=== PATIENT | female | born 1970 | race Caucasian/White ===

== ENCOUNTER 2017-12-27 04:05 | Observation (INO) | payer OTHER ==
[2017-12-27] MEDS ORDERED: ONDANSETRON 4 MG/2 ML VIAL IVP STA (04:35)
[2017-12-27] MEDS ORDERED: MORPHINE SULFATE 2 MG/ML SYRINGE IVP STA ×2 (04:42→06:53)
[2017-12-27] MEDS ORDERED: SODIUM CHLORIDE 0.9% 500 ML 500 ML IV STA (04:45)
[2017-12-27 05:07] LABS: Basophils % (A) 0 %; Eosinophils # (A) 0.2 k/uL (0-0.7); Eosinophils % (A) 2 %; HCT 42.1 % (34.0-46.0); HGB 13.3 gm/dL (11.4-16.0); Lymphocytes # (A) 1.7 k/uL (1.0-4.8); Lymphocytes % (A) 15 %; MCH 26.7 pg (25.0-35.0); MCHC 31.5 g/dL (31.0-37.0); MCV 84.7 fL (80.0-100.0); Mean Platelet Volume 7.1; Monocytes # (A) 0.5 k/uL (0-1.0); Monocytes % (A) 4 %; Neutrophils # (A) 8.8 k/uL (1.3-7.7); Neutrophils % (A) 78 %; Platelet Count 424 k/uL (150-450); RBC 4.97 m/uL (3.80-5.40); RDW 14.1 % (11.5-15.5); WBC 11.4 k/uL (3.8-10.6)
[2017-12-27 05:21] LABS: ALT 261 U/L (9-52); AST 311 U/L (14-36); Albumin 4.1 g/dL (3.5-5.0); Alkaline Phosphatase 171 U/L (38-126); Anion Gap 11 mmol/L; Blood Urea Nitrogen 12 mg/dL (7-17); Calcium 9.2 mg/dL (8.4-10.2); Carbon Dioxide 27 mmol/L (22-30); Chloride 101 mmol/L (98-107); Glucose 98 mg/dL (74-99); Potassium 3.7 mmol/L (3.5-5.1); Sodium 139 mmol/L (137-145); Total Bilirubin 0.8 mg/dL (0.2-1.3); Total Protein 7.4 g/dL (6.3-8.2)
[2017-12-27 05:32] LABS: Creatine Kinase 93 U/L (30-135)
[2017-12-27 05:43] LABS: Amylase 561 U/L (30-110)
[2017-12-27 05:46] LABS: Creatine Kinase MB 0.7 ng/mL (0.0-2.4); Troponin I <0.012 ng/mL (0.000-0.034)
--- NOTE | 2017-12-27 05:46 | XR ---
EXAM: XR Abdomen, 1 View. CLINICAL HISTORY: Reason: abdominal pain TECHNIQUE: Frontal supine view of the abdomen/pelvis. COMPARISON: No relevant prior studies available. FINDINGS: Gastrointestinal tract: Bowel gas pattern is nonobstructive. No gross pneumoperitoneum. Bones: Unremarkable. No acute fracture. Intrauterine contraceptive device in place. IMPRESSION: No findings to account for the patient's symptoms.
--- NOTE | 2017-12-27 05:50 | ED ---
Abdominal Pain HPI - General Chief Complaint: Abdominal Pain Stated Complaint: Abd pain Time Seen by Provider: 12/27/17 05:00 Source: patient Mode of arrival: ambulatory Limitations: no limitations - History of Present Illness MD Complaint: abdominal pain Onset/Timin -: hour(s) Location: periumbilical Radiation: none Migration to: no migration Severity: moderate Quality: dull Consistency: constant Improves With: nothing Worsens With: nothing Associated Symptoms: nausea - Related Data Allergies Allergy/AdvReac Type Severity Reaction Status Date / Time No Known Allergies Allergy Verified 12/27/17 04:14 Review of Systems ROS Statement: Those systems with pertinent positive or pertinent negative responses have been documented in the HPI. ROS Other: All systems not noted in ROS Statement are negative. Constitutional: Denies: fever, chills Respiratory: Denies: cough, dyspnea Cardiovascular: Denies: chest pain, palpitations Gastrointestinal: Reports: abdominal pain, nausea. Denies: vomiting, diarrhea, constipation, melena, hematochezia Genitourinary: Denies: urgency, dysuria, hematuria Musculoskeletal: Denies: back pain Skin: Denies: rash Neurological: Denies: headache, weakness Past Medical History Past Medical History: GERD/Reflux, Hyperlipidemia, Hypertension Additional Past Medical History / Comment(s): hernia History of Any Multi-Drug Resistant Organisms: None Reported Past Surgical History: No Surgical Hx Reported Past Psychological History: Anxiety Smoking Status: Former smoker Past Alcohol Use History: Occasional Past Drug Use History: None Reported General Exam Limitations: no limitations General appearance: alert, in no apparent distress, obese Head exam: Present: atraumatic, normocephalic Eye exam: Present: normal appearance. Absent: scleral icterus, conjunctival injection ENT exam: Present: normal oropharynx Respiratory exam: Present: normal lung sounds bilaterally. Absent: respiratory distress, wheezes, rales, rhonchi, stridor Cardiovascular Exam: Present: regular rate, normal rhythm, normal heart sounds. Absent: systolic murmur, diastolic murmur, rubs, gallop GI/Abdominal exam: Present: soft, tenderness. Absent: distended, guarding, rebound, rigid Extremities exam: Present: normal inspection, normal capillary refill. Absent: pedal edema, calf tenderness Back exam: Present: normal inspection. Absent: CVA tenderness (R), CVA tenderness (L) Neurological exam: Present: alert Skin exam: Present: warm, dry, intact, normal color. Absent: rash Course Vital Signs 12/27/17 04:09 Temperature 98.8 F Pulse Rate 74 Respiratory 18 Rate Blood Pressure 168/81 O2 Sat by Pulse 97 Oximetry Medical Decision Making - Lab Data Result diagrams: 12/27/17 04:56 12/27/17 04:56 Lab Results 12/27/17 12/27/17 12/27/17 Range/Units 04:56 04:56 04:56 WBC 11.4 H (3.8-10.6) k/uL RBC 4.97 (3.80-5.40) m/uL Hgb 13.3 (11.4-16.0) gm/dL Hct 42.1 (34.0-46.0) % MCV 84.7 (80.0-100.0) fL MCH 26.7 (25.0-35.0) pg MCHC 31.5 (31.0-37.0) g/dL RDW 14.1 (11.5-15.5) % Plt Count 424 (150-450) k/uL Neutrophils % 78 % Lymphocytes % 15 % Monocytes % 4 % Eosinophils % 2 % Basophils % 0 % Neutrophils # 8.8 H (1.3-7.7) k/uL Lymphocytes # 1.7 (1.0-4.8) k/uL Monocytes # 0.5 (0-1.0) k/uL Eosinophils # 0.2 (0-0.7) k/uL Basophils # 0.0 (0-0.2) k/uL Sodium 139 (137-145) mmol/L Potassium 3.7 (3.5-5.1) mmol/L Chloride 101 (98-107) mmol/L Carbon Dioxide 27 (22-30) mmol/L Anion Gap 11 mmol/L BUN 12 (7-17) mg/dL Creatinine 0.55 (0.52-1.04) mg/dL Est GFR (CKD-EPI)AfAm >90 (>60 ml/min/1.73 sqM) Est GFR (CKD-EPI)NonAf >90 (>60 ml/min/1.73 sqM) Glucose 98 (74-99) mg/dL Calcium 9.2 (8.4-10.2) mg/dL Total Bilirubin 0.8 (0.2-1.3) mg/dL AST 311 H (14-36) U/L ALT 261 H (9-52) U/L Alkaline Phosphatase 171 H (38-126) U/L Total Creatine Kinase 93 (30-135) U/L CK-MB (CK-2) 0.7 (0.0-2.4) ng/mL CK-MB (CK-2) Rel Index 0.8 Troponin I <0.012 (0.000-0.034) ng/mL Total Protein 7.4 (6.3-8.2) g/dL Albumin 4.1 (3.5-5.0) g/dL Amylase 561 H* (30-110) U/L Lipase 5821 H (23-300) U/L Urine Color Urine Appearance (Clear) Urine pH (5.0-8.0) Ur Specific Scott (1.001-1.035) Urine Protein (Negative) Urine Glucose (UA) (Negative) Urine Ketones (Negative) Urine Blood (Negative) Urine Nitrite (Negative) Urine Bilirubin (Negative) Urine Urobilinogen (<2.0) mg/dL Ur Leukocyte Esterase (Negative) 12/27/17 Range/Units 06:18 WBC (3.8-10.6) k/uL RBC (3.80-5.40) m/uL Hgb (11.4-16.0) gm/dL Hct (34.0-46.0) % MCV (80.0-100.0) fL MCH (25.0-35.0) pg MCHC (31.0-37.0) g/dL RDW (11.5-15.5) % Plt Count (150-450) k/uL Neutrophils % % Lymphocytes % % Monocytes % % Eosinophils % % Basophils % % Neutrophils # (1.3-7.7) k/uL Lymphocytes # (1.0-4.8) k/uL Monocytes # (0-1.0) k/uL Eosinophils # (0-0.7) k/uL Basophils # (0-0.2) k/uL Sodium (137-145) mmol/L Potassium (3.5-5.1) mmol/L Chloride (98-107) mmol/L Carbon Dioxide (22-30) mmol/L Anion Gap mmol/L BUN (7-17) mg/dL Creatinine (0.52-1.04) mg/dL Est GFR (CKD-EPI)AfAm (>60 ml/min/1.73 sqM) Est GFR (CKD-EPI)NonAf (>60 ml/min/1.73 sqM) Glucose (74-99) mg/dL Calcium (8.4-10.2) mg/dL Total Bilirubin (0.2-1.3) mg/dL AST (14-36) U/L ALT (9-52) U/L Alkaline Phosphatase (38-126) U/L Total Creatine Kinase (30-135) U/L CK-MB (CK-2) (0.0-2.4) ng/mL CK-MB (CK-2) Rel Index Troponin I (0.000-0.034) ng/mL Total Protein (6.3-8.2) g/dL Albumin (3.5-5.0) g/dL Amylase (30-110) U/L Lipase (23-300) U/L Urine Color Yellow Urine Appearance Clear (Clear) Urine pH 5.5 (5.0-8.0) Ur Specific Scott 1.014 (1.001-1.035) Urine Protein Negative (Negative) Urine Glucose (UA) Negative (Negative) Urine Ketones Negative (Negative) Urine Blood Negative (Negative) Urine Nitrite Negative (Negative) Urine Bilirubin Negative (Negative) Urine Urobilinogen <2.0 (<2.0) mg/dL Ur Leukocyte Esterase Negative (Negative) Disposition Clinical Impression: Abdominal pain, Pancreatitis, Hepatic steatosis Disposition: ADMITTED IP TO THIS [facility] Condition: Fair Referrals: Kathleen Browning MD [Primary Care Provider] - 1-2 days
[2017-12-27 06:12] LABS: Lipase 5821 U/L (23-300)
[2017-12-27 06:25] LABS: Appearance,Urine Clear (Clear); Bilirubin,Urine Negative (Negative); Blood,Urine Negative (Negative); Color,Urine Yellow; Glucose,Urine (UA) Negative (Negative); Ketones,Urine Negative (Negative); Leukocyte Esterase,Urine Negative (Negative); Nitrite,Urine Negative (Negative); PH, Urine 5.5 (5.0-8.0); Protein,Urine Negative (Negative); Specific Gravity,Urine 1.014 (1.001-1.035); Urobilinogen,Urine <2.0 mg/dL (<2.0)
--- NOTE | 2017-12-27 07:43 | US ---
EXAMINATION TYPE: US abdomen limited DATE OF EXAM: 12/27/2017 COMPARISON: None CLINICAL HISTORY: 47-year-old female attention RUQ. Patient states having midline pain, ate a few ana lilia rs ago, no surgeries TECHNIQUE: Multiple sonographic images of the right upper quadrant are obtained. FINDINGS: EXAM MEASUREMENTS: Liver Length: 18.4 cm Gallbladder Wall: 0.2 cm CBD: 0.4 cm CHD: 0.6 cm Right Kidney: 12.4 x 5.7 x 5.0 cm Pharmacy Intake Technician notes:Suboptimal exam due to patient body habitus. Pancreas: Head and tail obscured by bowel gas. Only a small portion of the pancreatic body is seen. Liver: Slightly enlarged. Diffuse increased echogenicity with marked far field attenuation. This sec ondarily limits assessment for focal lesion. Gallbladder: Possible layering sludge/gravel. No abnormal gallbladder distention, wall thickening, o r pericholecystic fluid. No large shadowing calculus. Evidence for sonographic Hernandez's sign: neg CBD: wnl CHD: wnl Right Kidney: wnl IMPRESSION: Very limited exam due to patient's large body habitus. There is severe hepatic steatosis. Correlate w ith LFTs, lipid profile, and patient risk factors. Also, suspect layering sludge or gravel in the gal lbladder.
[2017-12-27] MEDS ORDERED: SODIUM CHLORIDE 0.9% 1,000 ML IV ONE (07:54)
[2017-12-27] MEDS: HYDROmorphone 1 MG/ML 1 ML SYRINGE IVP PRN ×3 (10:12→19:33)
--- NOTE | 2017-12-27 11:28 | P.CONS ---
History of Present Illness - Reason for Consult Consult date: 12/27/17 Pancreatitis Requesting physician: Cristina Escamilla - Chief Complaint Abdominal pain - History of Present Illness 47-year-old female with a history of fatty liver disease, morbid obesity, GERD hyperlipidemia hypertension anxiety admitted with acute abdominal pain that started yesterday. Pain localized mostly in the upper abdomen. She has a few episodes similar to this early this year but resolved without medical intervention. Consult requested for pancreatitis. No history of pancreatitis. No history of EtOH. No history of autoimmune disorders. No changes in medications. Admission lipase 5821. Amylase I 61. Total bilirubin 0.8. AST 311. ALT 261. AP 171. White count 11.4. Hemoglobin 13.3. Platelet 424. Ultrasound abdomen pancreatic head and tablets daily. Gallbladder with layering sludge gravel no abnormal gallbladder distention wall thickening or pericholecystic fluid. CBD 0.4 cm. Severe hepatic steatosis. She states her liver enzymes have been monitored in the outpatient setting before for possible fatty liver disease. Review of Systems Constitutional: Denies fever, chills, sweats, weight gain, or loss. HEENT: Negative for migraines, blurred vision or loss, earaches, drainage, tinnitus, oral mucosal lesions, dysphagia, or odynophagia. CARDIAC: Negative for chest pain, arrhythmias, or palpitation. RESPIRATORY: Negative for shortness of breath, hemoptysis, cough, or sputum production. GI: See HPI for pertinent findings. : Negative for hematuria, urgency, frequency, polyuria, or dysuria. GYNc: Denies possibility of . Negative vaginal discharge. MUSCULOSKELETAL: Negative for muscle aches, swelling, arthritis, and arthralgias. NEUROLOGIC: Negative for stroke or TIA. ENDOCRINE: Negative for thyroid problems. SKIN: Negative for rash or itching. PSYCHIATRIC: Negative history for depression and anxiety Past Medical History Past Medical History: GERD/Reflux, Hyperlipidemia, Hypertension Additional Past Medical History / Comment(s): hernia History of Any Multi-Drug Resistant Organisms: None Reported Past Surgical History: No Surgical Hx Reported Past Psychological History: Anxiety Smoking Status: Former smoker Past Alcohol Use History: Occasional Past Drug Use History: None Reported - Past Family History Father Family Medical History: Hypertension Additional Family Medical History / Comment(s): Father is at the age of 70yrs.. Pt cannot recall cause of his . Mother Family Medical History: No Reported History Additional Family Medical History / Comment(s): Mother is healthy and is 72 yrs old. Medications and Allergies Home Medications Medication Instructions Recorded Confirmed Type Hydrochlorothiazide 25 mg PO DAILY 12/27/17 12/27/17 History Omeprazole 20 mg PO DAILY 12/27/17 12/27/17 History Pravastatin Sodium [Pravachol] 40 mg PO DAILY 12/27/17 12/27/17 History Sertraline [Zoloft] 50 mg PO DAILY 12/27/17 12/27/17 History Allergies Allergy/AdvReac Type Severity Reaction Status Date / Time No Known Allergies Allergy Verified 12/27/17 08:04 Physical Exam Vitals: Vital Signs Temp Pulse Resp BP Pulse Ox 12/27/17 04:09 98.8 F 74 18 168/81 97 Intake and Output 12/26/17 12/27/17 12/27/17 22:59 06:59 14:59 Other: Weight 119.159 kg General appearance: The patient is alert, oriented, in no acute distress. HET: Head is normocephalic and atraumatic. Pupils are equal and reactive. Oropharynx is clear without lesions. Neck: Supple without lymphadenopathy. Trachea midline. Heart: S1 S2. Regular rate and rhythm. Lungs: No crackles or wheezes are heard. Abdomen: Soft, mild tenderness mid epigastrium bilateral upper abdomen, nondistended with bowel sounds. No peritoneal signs. No palpable organomegaly or masses. Extremities: Normal skin color and turgor. No cyanosis, rash, ulceration, clubbing, or edema. Radial and pedal pulses are 2/4 bilaterally. Neurological: No focal deficits. Strength and sensation are grossly intact. Results CBC & Chem 7: 12/27/17 04:56 12/27/17 04:56 Labs: Abnormal Lab Results - Last 24 Hours (Table) 12/27/17 12/27/17 Range/Units 04:56 04:56 WBC 11.4 H (3.8-10.6) k/uL Neutrophils # 8.8 H (1.3-7.7) k/uL AST 311 H (14-36) U/L ALT 261 H (9-52) U/L Alkaline Phosphatase 171 H (38-126) U/L Amylase 561 H* (30-110) U/L Lipase 5821 H (23-300) U/L US - abdomen: report reviewed (Dr. Cesar) Assessment and Plan (1) Pancreatitis Narrative/Plan: Acute pancreatitis and underlying pancreas cannot be entirely excluded with sludge seen on ultrasound imaging however patient has an underlying history of non-alcoholic steatohepatitis. Current Visit: Yes Status: Acute Code(s): K85.90 - ACUTE PANCREATITIS WITHOUT NECROSIS OR INFECTION, UNSP SNOMED Code(s): 08522181 (2) Transaminitis Narrative/Plan: Secondary to an underlying nonalcoholic steatohepatitis Current Visit: Yes Status: Acute Code(s): R74.0 - NONSPEC ELEV OF LEVELS OF TRANSAMNS & LACTIC ACID DEHYDRGNSE SNOMED Code(s): 875781413 (3) Hepatic steatosis Current Visit: Yes Status: Acute Code(s): K76.0 - FATTY (CHANGE OF) LIVER, NOT ELSEWHERE CLASSIFIED SNOMED Code(s): 614746349 (4) Gallbladder sludge Current Visit: Yes Status: Acute Code(s): K82.8 - OTHER SPECIFIED DISEASES OF GALLBLADDER SNOMED Code(s): 24653532 Plan: 1. Nothing by mouth except ice chips and popsicles. Daily CMP CBC lipase. We' ll obtain check with her level. We'll follow closely with you. Thank you for this kind referral and the opportunity to participate in the care of your patient. This consultation was discussed with Dr. Cesar. The impression and plan of care have been directed as dictated.
--- NOTE | 2017-12-27 13:15 | P.HPIM ---
History of Present Illness Patient is a pleasant 47-year-old female came in with complains of severe epigastric sharp abdominal pain nonradiating associated with the some nausea on to have highly elevated lipase admitted for pancreatitis, denied any significant alcohol history ultrasound did not show any cholelithiasis lipase panel is being obtained nausea improved now pain is better now. Ultrasound did show some gallbladder sludge denied any fever chills dysuria. There is some leukocytosis which is reactive there was elevated and malaise as well minimally elevated liver enzymes and patient lives is obese Review of Systems REVIEW OF SYSTEMS: CONSTITUTIONAL: No fever, no malaise, no fatigue. HEENT: No recent visual problems or hearing problems. Denied any sore throat. CARDIOVASCULAR: No chest pain, orthopnea, PND, no palpitations, no syncope. PULMONARY: No shortness of breath, no cough, no hemoptysis. GASTROINTESTINAL: As mentioned in HPI NEUROLOGICAL: No headaches, no weakness, no numbness. HEMATOLOGICAL: Denies any bleeding or petechiae. GENITOURINARY: Denies any burning micturition, frequency, or urgency. MUSCULOSKELETAL/RHEUMATOLOGICAL: Denies any joint pain, swelling, or any muscle pain. ENDOCRINE: Denies any polyuria or polydipsia. The rest of the 14-point review of systems is negative. Past Medical History Past Medical History: GERD/Reflux, Hyperlipidemia, Hypertension Additional Past Medical History / Comment(s): hernia History of Any Multi-Drug Resistant Organisms: None Reported Past Surgical History: No Surgical Hx Reported Additional Past Surgical History / Comment(s): EGD, colonoscopy, D&C Past Anesthesia/Blood Transfusion Reactions: No Reported Reaction, Motion Sickness Past Psychological History: Anxiety Smoking Status: Former smoker Past Alcohol Use History: Occasional Past Drug Use History: None Reported - Past Family History Father Family Medical History: Hypertension Additional Family Medical History / Comment(s): Father is at the age of 70yrs.. Pt cannot recall cause of his . Mother Family Medical History: No Reported History Additional Family Medical History / Comment(s): Mother is healthy and is 72 yrs old. Medications and Allergies Home Medications Medication Instructions Recorded Confirmed Type Hydrochlorothiazide 25 mg PO DAILY 12/27/17 12/27/17 History Omeprazole 20 mg PO DAILY 12/27/17 12/27/17 History Pravastatin Sodium [Pravachol] 40 mg PO DAILY 12/27/17 12/27/17 History Sertraline [Zoloft] 50 mg PO DAILY 12/27/17 12/27/17 History Allergies Allergy/AdvReac Type Severity Reaction Status Date / Time No Known Allergies Allergy Verified 12/27/17 08:04 Physical Exam Vitals: Vital Signs Temp Pulse Pulse Resp BP BP Pulse Ox 12/27/17 09:10 98.1 F 63 16 183/88 98 12/27/17 08:43 97.9 F 66 18 161/77 100 12/27/17 04:09 98.8 F 74 18 168/81 97 Intake and Output 12/26/17 12/27/17 12/27/17 22:59 06:59 14:59 Other: # Voids 1 Weight 119.159 kg PHYSICAL EXAMINATION: GENERAL: The patient is alert and oriented x3, not in any acute distress. Obese HEENT: Pupils are round and equally reacting to light. EOMI. No scleral icterus. No conjunctival pallor. Normocephalic, atraumatic. No pharyngeal erythema. No thyromegaly. CARDIOVASCULAR: S1 and S2 present. No murmurs, rubs, or gallops. PULMONARY: Chest is clear to auscultation, no wheezing or crackles. ABDOMEN: Soft, minimal tenderness in the epigastric area good bowel sounds no rebound or rigidity. MUSCULOSKELETAL: No joint swelling or deformity. EXTREMITIES: No cyanosis, clubbing, or pedal edema. NEUROLOGICAL: Gross neurological examination did not reveal any focal deficits. SKIN: No rashes. Results CBC & Chem 7: 12/27/17 04:56 12/27/17 04:56 Labs: Abnormal Lab Results - Last 24 Hours (Table) 12/27/17 12/27/17 Range/Units 04:56 04:56 WBC 11.4 H (3.8-10.6) k/uL Neutrophils # 8.8 H (1.3-7.7) k/uL AST 311 H (14-36) U/L ALT 261 H (9-52) U/L Alkaline Phosphatase 171 H (38-126) U/L Amylase 561 H* (30-110) U/L Lipase 5821 H (23-300) U/L Thrombosis Risk Factor Assmnt - Choose All That Apply Any of the Below Risk Factors Present?: Yes Each Factor Represents 1 point: Age 41-60 years, Obesity (BMI >25) Other Risk Factors: No Other congenital or acquired thrombophilia - If yes, enter type in comment: No Thrombosis Risk Factor Assessment Total Risk Factor Score: 2 Thrombosis Risk Factor Assessment Level: Low Risk Assessment and Plan Plan: -Acute pancreatitis etiology is unclear although there is some gallbladder surgery there is no evidence of cholelithiasis patient doesn't have any significant history patient will remain nothing by mouth. Repeat comprehensive metabolic profile tomorrow. -Leukocytosis secondary to pancreatitis which is an inflammatory condition -Mild transaminitis secondary to nonalcoholic steatohepatitis -Gastroesophageal reflux disease -Hyperlipidemia -Hypertension -Depression All her home medications are being held as patient is nothing by mouth except for ice chips, antidepressant will be started early tomorrow morning
[2017-12-27] MEDS: PANTOPRAZOLE 40 MG/10 ML VIAL IVP SCH (14:02)
[2017-12-27] MEDS: SODIUM CHLORIDE 0.9% 1,000 ML IV SCH (16:19)
[2017-12-27] MEDS: ONDANSETRON 4 MG/2 ML VIAL IVP PRN (18:37)
[2017-12-28] MEDS: SODIUM CHLORIDE 0.9% 1,000 ML IV SCH ×2 (01:00→08:04)
[2017-12-28] MEDS: PANTOPRAZOLE 40 MG/10 ML VIAL IVP SCH (07:54)
[2017-12-28] MEDS: ONDANSETRON 4 MG/2 ML VIAL IVP PRN (08:02)
[2017-12-28] MEDS: HYDROmorphone 1 MG/ML 1 ML SYRINGE IVP PRN (08:02)
[2017-12-28 08:35] VITALS: BP 170/68; PULSE 71; RESP 16; TEMP 97.8
[2017-12-28 08:35] LABS: HCT 38.7 % (34.0-46.0); HGB 11.8 gm/dL (11.4-16.0); Hypochromasia Slight; MCH 26.4 pg (25.0-35.0); MCHC 30.6 g/dL (31.0-37.0); MCV 86.4 fL (80.0-100.0); Platelet Count 407 k/uL (150-450); RBC 4.48 m/uL (3.80-5.40); RDW 14.2 % (11.5-15.5); WBC 13.1 k/uL (3.8-10.6)
[2017-12-28 08:57] LABS: ALT 171 U/L (9-52); AST 100 U/L (14-36); Albumin 3.7 g/dL (3.5-5.0); Alkaline Phosphatase 149 U/L (38-126); Anion Gap 12 mmol/L; Blood Urea Nitrogen 10 mg/dL (7-17); Calcium 8.7 mg/dL (8.4-10.2); Carbon Dioxide 23 mmol/L (22-30); Chloride 106 mmol/L (98-107); Glucose 90 mg/dL (74-99); Lipase 350 U/L (23-300); Potassium 3.8 mmol/L (3.5-5.1); Sodium 141 mmol/L (137-145); Total Bilirubin 0.5 mg/dL (0.2-1.3); Total Protein 6.8 g/dL (6.3-8.2)
[2017-12-28] MEDS ORDERED: SERTRALINE 50 MG TAB PO SCH (09:00)
--- NOTE | 2017-12-28 11:39 | P.PN ---
Subjective Progress Note Date: 12/28/17 Principal diagnosis: Pancreatitis Feels better. Afebrile. Transaminases pancreatic enzymes improved. Minimal abdominal pain. Objective - Vital Signs Vital signs: Vital Signs Temp 97.8 F 12/28/17 07:25 Pulse 71 12/28/17 07:25 Resp 16 12/28/17 07:25 BP 170/68 12/28/17 07:25 Pulse Ox 96 12/28/17 07:25 Intake & Output 12/27/17 12/28/17 12/28/17 18:59 06:59 18:59 Intake Total 0 10 Balance 0 10 Weight 119.159 kg Intake: Oral 0 10 Other: Voiding Method Toilet Toilet # Voids 1 1 - Exam General appearance: The patient is alert, oriented, in no acute distress. HET: Head is normocephalic and atraumatic. Pupils are equal and reactive. Oropharynx is clear without lesions. Neck: Supple without lymphadenopathy. Trachea midline. Heart: S1 S2. Regular rate and rhythm. Lungs: No crackles or wheezes are heard. Abdomen: Soft, . Mild midepigastric tenderness, nondistended with bowel sounds. No peritoneal signs. No palpable organomegaly or masses. Extremities: Normal skin color and turgor. No cyanosis, rash, ulceration, clubbing, or edema. Radial and pedal pulses are 2/4 bilaterally. Neurological: No focal deficits. Strength and sensation are grossly intact. - Labs CBC & Chem 7: 12/28/17 07:44 12/28/17 07:44 Labs: Abnormal Lab Results - Last 24 Hours (Table) 12/28/17 12/28/17 Range/Units 07:44 07:44 WBC 13.1 H (3.8-10.6) k/uL MCHC 30.6 L (31.0-37.0) g/dL AST 100 H (14-36) U/L ALT 171 H (9-52) U/L Alkaline Phosphatase 149 H (38-126) U/L Lipase 350 H (23-300) U/L Assessment and Plan (1) Pancreatitis Narrative/Plan: Acute pancreatitis and underlying pancreas cannot be entirely excluded with sludge seen on ultrasound imaging however patient has an underlying history of non-alcoholic steatohepatitis. Current Visit: Yes Status: Acute Code(s): K85.90 - ACUTE PANCREATITIS WITHOUT NECROSIS OR INFECTION, UNSP SNOMED Code(s): 22971095 (2) Transaminitis Narrative/Plan: Secondary to an underlying nonalcoholic steatohepatitis Current Visit: Yes Status: Acute Code(s): R74.0 - NONSPEC ELEV OF LEVELS OF TRANSAMNS & LACTIC ACID DEHYDRGNSE SNOMED Code(s): 472694265 (3) Hepatic steatosis Current Visit: Yes Status: Acute Code(s): K76.0 - FATTY (CHANGE OF) LIVER, NOT ELSEWHERE CLASSIFIED SNOMED Code(s): 681585464 (4) Gallbladder sludge Current Visit: Yes Status: Acute Code(s): K82.8 - OTHER SPECIFIED DISEASES OF GALLBLADDER SNOMED Code(s): 54756703 Plan: 1. Low-fat diet. Discharge per medicine. Return to office for reevaluation 3- 4 weeks. General surgery consulted as outpatient. Assessment and plan a care discussed with
[2017-12-28] MEDS ORDERED: amLODIPine 5 MG TAB PO SCH (14:30)
--- NOTE | 2017-12-28 14:34 | P.DS ---
Providers Date of admission: 12/27/17 07:54 Expected date of discharge: 12/28/17 Attending physician: Cristina Machado Consults: 12/27/17 07:54 Consult Physician Routine Consulting Provider: Rodolfo Antunez Consult Reason/Comments: pancreatitis Do you want consulting provider notified?: Yes Primary care physician: [facility] Hospital Course: Final Diagnoses: -Acute pancreatitis etiology is unclear although there is some gallbladder surgery there is no evidence of cholelithiasis, HX of GRIFFIN -Leukocytosis secondary to pancreatitis which is an inflammatory condition -Mild transaminitis secondary to nonalcoholic steatohepatitis -Gastroesophageal reflux disease -Hyperlipidemia -Hypertension -Depression -Obesity, BMI 43.7 Hospital course:Patient is a pleasant 47-year-old female came in with complains of severe epigastric sharp abdominal pain nonradiating associated with the some nausea on to have highly elevated lipase admitted for pancreatitis, denied any significant alcohol history ultrasound did not show any cholelithiasis lipase panel is being obtained nausea improved now pain is better now. Ultrasound did show some gallbladder sludge denied any fever chills dysuria. There is some leukocytosis which is reactive there was elevated and malaise as well minimally elevated liver enzymes and patient is obese. Review of Systems REVIEW OF SYSTEMS: CONSTITUTIONAL: No fever, no malaise, no fatigue. HEENT: No recent visual problems or hearing problems. Denied any sore throat. CARDIOVASCULAR: No chest pain, orthopnea, PND, no palpitations, no syncope. PULMONARY: No shortness of breath, no cough, no hemoptysis. GASTROINTESTINAL: As mentioned in HPI NEUROLOGICAL: No headaches, no weakness, no numbness. HEMATOLOGICAL: Denies any bleeding or petechiae. GENITOURINARY: Denies any burning micturition, frequency, or urgency. MUSCULOSKELETAL/RHEUMATOLOGICAL: Denies any joint pain, swelling, or any muscle pain. ENDOCRINE: Denies any polyuria or polydipsia. The rest of the 14-point review of systems is negative. Evaluated by GI. Significant clinical improvement of transaminases pancreatic enzymes, abdominal pain. Cleared by GI for discharge. Patient to follow-up with surgery outpatient. Patient is being discharged home in a stable condition with guarded prognosis. EXAMINATION: GENERAL: The patient is alert and oriented x3, not in any acute distress. HEENT: Pupils are round and equally reacting to light. EOMI. No scleral icterus. No conjunctival pallor. Normocephalic, atraumatic. CARDIOVASCULAR: S1 and S2 present. No murmurs, rubs, or gallops. PULMONARY: Chest is clear to auscultation, no wheezing or crackles. ABDOMEN: Soft, minimal tenderness in the epigastric area good bowel sounds no rebound or rigidity. NEUROLOGICAL: Gross neurological examination did not reveal any focal deficits. The impression and plan of care has been dictated as directed. : I performed a history and examination of this patient, discussed the same with the dictator. I agree with the dictator's note ,documented as a scribe. Any additional findings or plans will be noted. Time taken: 35 minutes Patient Condition at Discharge: Stable Plan - Discharge Summary Discharge Rx Participant: No New Discharge Prescriptions: New amLODIPine [Norvasc] 5 mg PO DAILY #30 tab Continue Sertraline [Zoloft] 50 mg PO DAILY Omeprazole 20 mg PO DAILY Discontinued Pravastatin Sodium [Pravachol] 40 mg PO DAILY Hydrochlorothiazide 25 mg PO DAILY Discharge Medication List Omeprazole 20 mg PO DAILY 12/27/17 [History] Sertraline [Zoloft] 50 mg PO DAILY 12/27/17 [History] amLODIPine [Norvasc] 5 mg PO DAILY #30 tab 12/28/17 [Rx] Follow up Appointment(s)/Referral(s): Jacobo Reynoso MD [Medical Doctor] - 1 Week Kathleen Browning MD [Primary Care Provider] - 3 Days Ahmet Cesar MD [STAFF PHYSICIAN] - 01/30/18 3:45 pm Ambulatory/Diagnostic Orders: Comprehensive Metabolic Panel [LAB.AMB] Time Frame: 3 Days, Location: None Selected Patient Instructions/Handouts: Pancreatitis (DC) Activity/Diet/Wound Care/Special Instructions: Please see surgeon for possible out-patient gall bladder removal assessment. Low fat, bland diet. No alcohol. Activity as tolerated. Statin currently on hold related to improving elevated LFTs.
== END 2017-12-28 16:56 | disposition home or self-care (01) ==
LOC: EC 04:05 → 4MS4W 07:54 → INTOOBSV 07:54 → UNDODISIN 12-28 16:56
PROVIDERS: ADMIT Hospitalist; ATTEND Hospitalist
DX: K85.90 Acute pancreatitis without necrosis or infection, unspecified (principal); K75.81 Nonalcoholic steatohepatitis (NASH); I10 Essential (primary) hypertension; E78.5 Hyperlipidemia, unspecified; F32.9 Major depressive disorder, single episode, unspecified; F41.9 Anxiety disorder, unspecified; K21.9 Gastro-esophageal reflux disease without esophagitis; E66.01 Morbid (severe) obesity due to excess calories; E66.9 Obesity, unspecified; Z79.899 Other long term (current) drug therapy; Z87.891 Personal history of nicotine dependence; Z97.5 Presence of (intrauterine) contraceptive device; Z82.49 Family history of ischemic heart disease and other diseases of the circulatory system
CPT/HCPCS: 96376 ×3; 96361 ×2; 96375 ×2; 96374; 99285; 36415; 80053 ×2; 82150; 82550; 82553; 83690 ×2; 84478; 84484; 85025; 85027; 81003; 74018; 76705; G0378 ×2; J2405 ×2; J2270; J1170 ×2; C9113 ×2

== ENCOUNTER → 2018-01-06 | Outpatient (CLI) | payer OTHER | END | disposition home or self-care (01) | LOC: LABPAT 11:03 | PROVIDERS: ATTEND Anesthesiology | DX: I10 Essential (primary) hypertension (principal) | CPT/HCPCS: 93005 ==

== ENCOUNTER 2018-01-08 08:46 | Day surgery (SDC) | payer OTHER ==
[2018-01-05 10:10] VITALS: BMI 43.2
[~2018-01-08 08:46] MED LIST: DEXAMETHASONE SOD PHOSPHATE 10 MG/ML 1 ML VIAL IV ONE; HEPARIN SODIUM,PORCINE 5,000 UNIT/ML 1 ML VIAL SQ ONE; HYDROmorphone 0.5 MG/0.5 ML SYRINGE IVP PRN; LACTATED RINGERS 1,000 ML IV SCH; LIDOCAINE 1% 20 ML VIAL (10MG/ML) FOR IV START INTRADERMA PRN; ONDANSETRON 4 MG/2 ML VIAL IVP ONE; SCOPOLAMINE 1.5MG/72HR PATCH TRANSDERM ONE; ceFAZolin IN SWFI 2 GM/20 ML SYRINGE IVP ONE
--- NOTE | 2018-01-08 11:26 | P.GSHP ---
History of Present Illness H&P Date: 01/08/18 Chief Complaint: Right upper quadrant pain This a 47-year-old female who's had complete the right upper quadrant pain. Recent ultrasound shows evidence of cholelithiasis and sludge. Patient presents today for laparoscopic cholecystectomy. Past Medical History Past Medical History: GERD/Reflux, Hyperlipidemia, Hypertension Additional Past Medical History / Comment(s): states "was having nausea with abdominal pain",hernia,IUD present History of Any Multi-Drug Resistant Organisms: None Reported Past Surgical History: No Surgical Hx Reported Additional Past Surgical History / Comment(s): EGD, colonoscopy, D&C Past Anesthesia/Blood Transfusion Reactions: No Reported Reaction, Motion Sickness Additional Past Anesthesia/Blood Transfusion Reaction / Comment(s): no hx blood transfusion Smoking Status: Former smoker - Past Family History Father Family Medical History: Hypertension Additional Family Medical History / Comment(s): Father is at the age of 70yrs.. Pt cannot recall cause of his . Mother Family Medical History: No Reported History Additional Family Medical History / Comment(s): Mother is healthy and is 72 yrs old. Medications and Allergies Home Medications Medication Instructions Recorded Confirmed Type Omeprazole 20 mg PO QAM 12/27/17 01/08/18 History Sertraline [Zoloft] 50 mg PO QAM 12/27/17 01/08/18 History Acetaminophen Tab [Tylenol Tab] 500 - 1,000 mg PO Q6HR PRN 01/05/18 01/08/18 History amLODIPine [Norvasc] 5 mg PO QAM 01/05/18 01/08/18 History Allergies Allergy/AdvReac Type Severity Reaction Status Date / Time No Known Allergies Allergy Verified 01/08/18 10:16 Surgical - Exam Vital Signs Temp Pulse Resp BP Pulse Ox 99.2 F 75 18 184/85 95 01/08/18 10:20 01/08/18 10:20 01/08/18 10:20 01/08/18 10:20 01/08/18 10:20 - General well developed, no distress - Eyes PERRL - ENT normal pinna - Neck no masses - Respiratory normal expansion - Cardiovascular Rhythm: regular - Abdomen Abdomen: soft, non tender Assessment and Plan Assessment: Cholelithiasis Cholecystitis We'll perform laparoscopic cholecystectomy.
[2018-01-08] MEDS ORDERED: LIDOCAINE 1% INJ 10MG/ML (20 ML MDV) ONE (11:32)
[2018-01-08] MEDS ORDERED: NEOSTIGMINE 1 MG/ML 10 ML VIAL ONE (11:32)
[2018-01-08] MEDS ORDERED: MIDAZOLAM 2 MG/2 ML VIAL ONE (11:32)
[2018-01-08] MEDS ORDERED: ROCURONIUM BROMIDE 10 MG/ML 10 ML VIAL IV ONE (11:32)
[2018-01-08] MEDS ORDERED: GLYCOPYRROLATE 0.2 MG/ML 2 ML VIAL ONE (11:32)
[2018-01-08] MEDS ORDERED: fentaNYL (PF) 50 MCG/ML 2 ML AMP ONE (11:32)
[2018-01-08] MEDS ORDERED: SUCCINYLCHOLINE CHLORIDE VIAL 200 MG/10 ML VIAL IV ONE (11:32)
[2018-01-08] MEDS ORDERED: PROPOFOL 10 MG/ML 20 ML VIAL IV ONE (11:32)
[2018-01-08] MEDS ORDERED: BUPIVACAIN-EPI 0.25%-1:200,000 30 ML VIAL SQ ONE ×2 (12:12→12:17)
[2018-01-08] MEDS ORDERED: LACTATED RINGERS 1,000 ML IV ONE (12:13)
--- NOTE | 2018-01-08 12:51 | P.OP ---
Date of Procedure: 01/08/18 Preoperative Diagnosis: Cholelithiasis Postoperative Diagnosis: Cholelithiasis Procedure(s) Performed: Laparoscopic cholecystectomy Anesthesia: ELIU Surgeon: Arnaud Vilchis Estimated Blood Loss (ml): 25 Pathology: other (Gallbladder) Condition: stable Disposition: PACU Description of Procedure: The patient was placed on the operating table. The patient received a general endotracheal tube anesthesia. The patients abdomen was prepped and draped in the usual sterile fashion. Through an infraumbilical stab incision, the fascia of the anterior abdominal wall was grasped with a pair of Kochers and then the Veress needle was placed in the peritoneal cavity. Position of the Veress needle was confirmed with positive drop test. The abdomen was then insufflated. After adequate insufflation, the 10 mm trocar was placed in the peritoneal cavity. Following this the laparoscope was placed in the peritoneal cavity. The patient was placed in the head-up, right side up position and then a 5 mm trocar was placed in the right lateral and right subcostal position under direct visualization. A 8 mm trocar was placed in the epigastric position. The gallbladder was grasped in the fundus and infundibulum. Traction on the gallbladder was placed in the lateral and the cephalad positions. The triangle of Calot was visualized.. The cystic duct was bluntly dissected until the union of the cystic duct and common bile duct was seen. The cystic duct was then divided and sealed with the Harmonic scissors. A PDS Endoloop was then placed throughout the cystic duct stump. The cystic artery divided and sealed with the Harmonic scissors. The gallbladder was then removed from the liver bed using Harmonic scissors. The gallbladder was then extracted through the epigastric port site. Operative field was checked for any bleeding spots and Harmonic scissors was used to coagulate the liver bed. The abdomen was irrigated. The trocars were removed. The skin was closed using interrupted 3-0 Vicryl suture. Dermabond dressing were applied. The patient tolerated the procedure well.
[2018-01-08 13:08] VITALS: RESP 16; TEMP 96.8
[2018-01-08] MEDS ORDERED: HYDROcodone/APAP 7.5-325MG 1 EACH TAB PO ONE (14:15)
[2018-01-08 14:35] VITALS: BP 113/73; PULSE 60
== END 2018-01-08 14:55 | disposition home or self-care (01) ==
LOC: OR 08:46
PROVIDERS: ATTEND Surgery
DX: K80.10 Calculus of gallbladder with chronic cholecystitis without obstruction (principal); K21.9 Gastro-esophageal reflux disease without esophagitis; E78.5 Hyperlipidemia, unspecified; I10 Essential (primary) hypertension; Z97.5 Presence of (intrauterine) contraceptive device; Z87.891 Personal history of nicotine dependence; Z79.899 Other long term (current) drug therapy
CPT/HCPCS: 81025; 88304; 47562; J2250; J0330; J1644; J1100; J2710; J2405; J2001; J3010; J2704; J1170; J0690

== ENCOUNTER → 2018-07-24 | Outpatient (CLI) | payer OTHER ==
--- NOTE | 2018-07-24 12:26 | XR ---
EXAMINATION TYPE: XR KUB DATE OF EXAM: 07/24/2018 CLINICAL DATA: 48-year-old female with lower abdominal pain, PHH COMPARISON: 12/27/2017 FINDINGS: Spine imaging limited for assessment of free air. No dilated bowel. Scattered air and stool seen throughout the colon extending distally into the rectu m. Moderate stool burden. Cholecystectomy clips. IUD is present. Calcifications in the right side of the pelvis likely represen ting phlebolith. IMPRESSION: Moderate stool burden. Overall nonobstructive bowel gas pattern.
== END ==
LOC: RADXRMAIN 11:41
PROVIDERS: ATTEND Family Medicine
DX: R10.30 Lower abdominal pain, unspecified (principal)
CPT/HCPCS: 74018

== ENCOUNTER → 2018-08-01 | Outpatient (CLI) | payer OTHER ==
--- NOTE | 2018-08-01 12:09 | CT ---
EXAMINATION TYPE: CT abdomen pelvis w con DATE OF EXAM: 08/01/2018 COMPARISON: HISTORY: Stomach pain, lower abdominal pains CT DLP: 1989.9 mGycm CONTRAST: CT scan of the abdomen and pelvis is performed with Oral Contrast and with IV Contrast, patient injec johnny with 100 mL of Isovue 300. FINDINGS: LUNG BASES-: No visible nodule. No infiltrate. LIVER/GB: The gallbladder is surgically absent. No space occupying hepatic lesion. Biliary tree is of normal caliber. PANCREAS: No inflammation. No distinct mass. SPLEEN: No splenic enlargement. No lesion seen. ADRENALS: No nodule. No thickening. KIDNEYS/BLADDER: No hydronephrosis. No nephrolithiasis. No distinct renal mass. Urinary bladder g rossly unremarkable. BOWEL: Normal appendix. Normal bowel caliber. No inflammation. GENITAL ORGANS: 2.2 cm left ovarian cystic lesion. IUD is in place. Right ovarian follicle suspected measuring 1.4 cm. Consider ultrasound correlation. LYMPH NODES: No greater than 1cm abdominal or pelvic lymph nodes are appreciated. AORTA: No significant abnormality. OSSEOUS STRUCTURES: No significant abnormality is seen. OTHER: No significant additional abnormality is seen. IMPRESSION: 1. Ovarian cystic lesions. Consider ultrasound correlation.
== END ==
LOC: RADCTMAIN 09:43
PROVIDERS: ATTEND Family Medicine
DX: R10.30 Lower abdominal pain, unspecified (principal); N83.209 Unspecified ovarian cyst, unspecified side
CPT/HCPCS: 74177; Q9967 ×2

== ENCOUNTER → 2018-08-28 | Outpatient (CLI) | payer OTHER ==
--- NOTE | 2018-08-29 07:24 | US ---
EXAMINATION TYPE: US pelvic complete DATE OF EXAM: 08/28/2018 COMPARISON: NONE CLINICAL HISTORY: N83.202. TECHNIQUE: Transabdominal sonographic images of the pelvis were acquired. Date of LMP: EXAM MEASUREMENTS: Uterus: 8.0 x 3.1 x 4.8cm Endometrial Stripe: 0.4 cm Right Ovary: 2.9 x 1.8 x 1.8 cm Left Ovary: 2.4 x 1.6 x 1.6 cm Patient of large body habitus. 1. Uterus: wnl 2. Endometrium: wnl 3. Right Ovary: wnl 4. Left Ovary: wnl 5. Bilateral Adnexa: wnl 6. Posterior cul-de-sac: wnl IMPRESSION: Endometrial thickness is within normal limits. Ovaries are symmetric and unremarkable wit hout visualized ovarian cyst.
== END | disposition home or self-care (01) ==
LOC: RADUSWWP 08-16 11:57
PROVIDERS: ATTEND Family Medicine
DX: N83.202 Unspecified ovarian cyst, left side (principal)
CPT/HCPCS: 76856

== ENCOUNTER 2018-10-16 07:20 | Day surgery (SDC) | payer OTHER ==
[2018-10-12 10:49] VITALS: BMI 34.4
[~2018-10-16 07:20] MED LIST changes: -HEPARIN SODIUM,PORCINE 5,000 UNIT/ML 1 ML VIAL SQ ONE; -LIDOCAINE 1% 20 ML VIAL (10MG/ML) FOR IV START INTRADERMA PRN; -SCOPOLAMINE 1.5MG/72HR PATCH TRANSDERM ONE; -ceFAZolin IN SWFI 2 GM/20 ML SYRINGE IVP ONE
[2018-10-16 07:40] VITALS: RESP 16; TEMP 98.2
[2018-10-16] MEDS ORDERED: PROPOFOL 10 MG/ML 20 ML VIAL IV ONE (08:02)
--- NOTE | 2018-10-16 08:32 | P.OP ---
Date of Procedure: 10/16/18 Preoperative Diagnosis: Anemia Screening Postoperative Diagnosis: Gastritis Duodenitis Diverticulosis Internal hemorrhoids External hemorrhoids Procedure(s) Performed: EGD with biopsy Colonoscopy Surgeon: Agata Agee Pathology: other (Biopsies of duodenum, antrum, esophagus) Condition: stable Disposition: same day Indications for Procedure: 48-year-old female presents for upper and lower endoscopy secondary to diagnosis of anemia. She was explained the risks, benefits and alternatives to the procedure and did provide consent prior to attending the endoscopy suite. Operative Findings: Gastritis Duodenitis Diverticulosis Internal hemorrhoids External hemorrhoids Description of Procedure: The patient was brought into the endoscopy suite and placed in the left lateral decubitus position and adequate sedation was achieved using conscious sedation. A bite block was placed and an endoscope was placed in the oropharynx and advanced under endoscopic visual. The endoscope was advanced through the esophagus into the stomach, through the gastric antrum and in through the pylorus. The third portion of the duodenum was visualized. The endoscope was then slowly withdrawn. The first portion of the duodenum was noted to have inflammatory changes. Biopsies were taken. The antrum was noted to have inflammatory changes. Biopsies were taken. The gastric body distended normally and the gastric folds appeared normal and flattened with insufflation. There was no evidence of peptic ulcer disease. A retroflexed view of the fundus and GE junction revealed no significant hiatal hernia. The esophagus appeared endoscopically normal. Biopsies were taken. Excess air was removed and the scope was withdrawn. A digital rectal exam was performed and both external and internal hemorrhoids were palpated. An endoscope was then placed in the rectum and advanced to the cecum as identified by landmarks including the appendiceal orifice and the ileocecal valve. The prep was good. The colonoscope was then slowly withdrawn, examining for any mucosal abnormalities. The cecum, ascending, transverse, descending and sigmoid colon were visualized adequately. A small amount of mild diverticulosis was noted in the sigmoid colon. There were no large polyps noted throughout the colon. There was no evidence of neoplastic lesions throughout the colon. Retroflexion was performed in the rectum and internal hemorrhoids were visualized. Excess air was removed, the colonoscope withdrawn and the procedure terminated. The patient was then transferred to the recovery unit in stable condition. Repeat colonoscopy should be performed in 7 years unless otherwise indicated based on symptoms.
[2018-10-16 08:34] VITALS: PULSE 67
[2018-10-16 09:02] VITALS: BP 117/76
== END 2018-10-16 09:23 | disposition home or self-care (01) ==
LOC: ORWHC2ENDO 07:20
PROVIDERS: ATTEND Surgery
DX: K29.50 Unspecified chronic gastritis without bleeding (principal); K29.80 Duodenitis without bleeding; K64.8 Other hemorrhoids; K64.4 Residual hemorrhoidal skin tags; K57.30 Diverticulosis of large intestine without perforation or abscess without bleeding; Z80.0 Family history of malignant neoplasm of digestive organs; I10 Essential (primary) hypertension; E78.00 Pure hypercholesterolemia, unspecified; Z87.891 Personal history of nicotine dependence; Z90.49 Acquired absence of other specified parts of digestive tract; G47.33 Obstructive sleep apnea (adult) (pediatric); Z99.89 Dependence on other enabling machines and devices; K21.9 Gastro-esophageal reflux disease without esophagitis; Z79.899 Other long term (current) drug therapy
CPT/HCPCS: 81025; 88305; 45378; 43239; J2704

== ENCOUNTER 2019-09-06 18:40 | Emergency (ER) | payer OTHER ==
[2019-09-06 18:52] VITALS: PULSE 91
[2019-09-06 19:21] LABS: Appearance,Urine Clear (Clear); Bilirubin,Urine Negative (Negative); Blood,Urine Negative (Negative); Color,Urine Dark Brown; Glucose,Urine (UA) Negative (Negative); Ketones,Urine Negative (Negative); Leukocyte Esterase,Urine Negative (Negative); Nitrite,Urine Positive (Negative); Protein,Urine Negative (Negative); RBC,Urine 3 /hpf (0-5); Squamous Epithelial Cell,Urine <1 /hpf (0-4); Urobilinogen,Urine <2.0 mg/dL (<2.0); WBC,Urine 6 /hpf (0-5)
--- NOTE | 2019-09-06 19:52 | ED ---
Female Urogenital HPI - General Chief complaint: Urogenital Stated complaint: UTI Time Seen by Provider: 09/06/19 19:25 Source: patient Mode of arrival: ambulatory Limitations: no limitations - History of Present Illness Initial comments: Patient is a 49-year-old female presenting to the emergency Department with complaints of urinary frequency, dysuria 3 days. Patient states she went to a clinic 2 days ago and was prescribed Macrobid however she feels like her symptoms are getting worse. She denies any fever, chills, nausea, vomiting. She does admit to some very mild suprapubic pressure. She is also complaining of a "bump near her rectum." She states she has a history of hemorrhoids but is not sure what this bump is. She has no concerns for STDs. She has no further complaints at this time. Upon arrival to the ER her vitals are stable, afebrile. - Related Data Home Medications Medication Instructions Recorded Confirmed Omeprazole 20 mg PO QAM 12/27/17 10/16/18 Sertraline [Zoloft] 50 mg PO QAM 12/27/17 10/16/18 amLODIPine [Norvasc] 5 mg PO QAM 01/05/18 10/16/18 Multivitamins, Thera [Multivitamin 1 tab PO DAILY 10/12/18 10/12/18 (formulary)] Previous Rx's Medication Instructions Recorded Cephalexin [Keflex] 500 mg PO BID 7 Days #14 cap 09/06/19 Hydrocortisone Cream 1 applic RECTAL BID 7 Days #1 tube 09/06/19 [Hydrocortisone 2.5% Cream] Allergies Allergy/AdvReac Type Severity Reaction Status Date / Time No Known Allergies Allergy Verified 09/06/19 18:52 Review of Systems ROS Statement: Those systems with pertinent positive or pertinent negative responses have been documented in the HPI. ROS Other: All systems not noted in ROS Statement are negative. Past Medical History Past Medical History: GERD/Reflux, Hyperlipidemia, Hypertension Additional Past Medical History / Comment(s): hernia History of Any Multi-Drug Resistant Organisms: None Reported Past Surgical History: Cholecystectomy Additional Past Surgical History / Comment(s): EGD, colonoscopy, D&C Past Anesthesia/Blood Transfusion Reactions: No Reported Reaction, Motion Sickness Additional Past Anesthesia/Blood Transfusion Reaction / Comment(s): no hx blood transfusion Past Psychological History: Anxiety Smoking Status: Former smoker Past Alcohol Use History: Occasional Past Drug Use History: None Reported - Past Family History Father Family Medical History: Hypertension Additional Family Medical History / Comment(s): Father is at the age of 70yrs.. Pt cannot recall cause of his . Mother Family Medical History: No Reported History Additional Family Medical History / Comment(s): Mother is healthy and is 72 yrs old. General Exam - General Exam Comments Initial Comments: GENERAL: Well-appearing, well-nourished and in no acute distress. HEAD: Atraumatic, normocephalic. EYES: Pupils equal round and reactive to light, extraocular movements intact, sclera anicteric, conjunctiva are normal. ENT: TMs normal, nares patent, oropharynx clear without exudates. Moist mucous membranes. NECK: Normal range of motion, supple without lymphadenopathy or JVD. LUNGS: Breath sounds clear to auscultation bilaterally and equal. No wheezes rales or rhonchi. HEART: Regular rate and rhythm without murmurs, rubs or gallops. ABDOMEN: Mild suprapubic tenderness. Soft, normoactive bowel sounds. No guarding, no rebound. No masses appreciated. : Normal external exam, patient does have large external hemorrhoids. EXTREMITIES: Normal range of motion, no pitting or edema. No clubbing or cyanosis. NEUROLOGICAL: Normal speech, normal gait. PSYCH: Normal mood, normal affect. SKIN: Warm, Dry, normal turgor, no rashes or lesions noted. Limitations: no limitations Course Vital Signs 09/06/19 09/06/19 18:48 20:44 Temperature 98.2 F 99.7 F H Pulse Rate 91 91 Respiratory 18 17 Rate Blood Pressure 163/104 148/96 O2 Sat by Pulse 96 96 Oximetry Medical Decision Making - Medical Decision Making Patient is a 49-year-old female here for a UTI with progressive symptoms as well as external hemorrhoids. Vital signs are stable. Urine did return positive for nitrates, urine culture is pending. I discussed with patient that we will switch her antibiotic. Patient was given 1 g Rocephin in the ER and will be started on Keflex as an outpatient. Patient is also be given hydrocortisone cream for her external hemorrhoids. I also recommended witch cb pads. Patient is in agreement with this plan of care. Return parameters were discussed with the patient and she verbalized understanding. She is stable for discharge at this time. She'll follow up with her PCP. Case discussed with Dr. Washington. - Lab Data Lab Results 09/06/19 Range/Units 18:50 Urine Color Dark Brown Urine Appearance Clear (Clear) Urine pH 5.0 (5.0-8.0) Ur Specific [place] 1.010 (1.001-1.035) Urine Protein Negative (Negative) Urine Glucose (UA) Negative (Negative) Urine Ketones Negative (Negative) Urine Blood Negative (Negative) Urine Nitrite Positive H (Negative) Urine Bilirubin Negative (Negative) Urine Urobilinogen <2.0 (<2.0) mg/dL Ur Leukocyte Esterase Negative (Negative) Urine RBC 3 (0-5) /hpf Urine WBC 6 H (0-5) /hpf Ur Squamous Epith Cells <1 (0-4) /hpf Disposition Clinical Impression: Urinary tract infection, External hemorrhoids Disposition: HOME SELF-CARE Condition: Stable Instructions (If sedation given, give patient instructions): Urinary Tract Inf ection in Women (ED) Additional Instructions: Please return to the Emergency Department if symptoms worsen or any other concerns. Take antibiotic as prescribed. Use steroid cream as discussed on hemorrhoids. Follow up with PCP. Prescriptions: Hydrocortisone Cream [Hydrocortisone 2.5% Cream] 1 applic RECTAL BID 7 Days #1 tube Cephalexin [Keflex] 500 mg PO BID 7 Days #14 cap Is patient prescribed a controlled substance at d/c from ED?: No Referrals: Kathleen Browning MD [Primary Care Provider] - 1-2 days
[2019-09-06] MEDS ORDERED: cefTRIAXone 1,000 MG VIAL (IM USE) IM STA (20:33)
[2019-09-06 20:48] VITALS: BP 148/96; RESP 17; TEMP 99.7
== END 2019-09-06 20:48 | disposition home or self-care (01) ==
LOC: EC 18:40
DX: N39.0 Urinary tract infection, site not specified (principal); K64.4 Residual hemorrhoidal skin tags; K21.9 Gastro-esophageal reflux disease without esophagitis; I10 Essential (primary) hypertension; F41.9 Anxiety disorder, unspecified; Z87.891 Personal history of nicotine dependence; Z90.49 Acquired absence of other specified parts of digestive tract; Z79.899 Other long term (current) drug therapy
CPT/HCPCS: 81001; 87086; 99283; 96372; J0696

== ENCOUNTER → 2021-04-06 | Outpatient (CLI) | payer OTHER ==
--- NOTE | 2021-04-08 10:31 | MM ---
Reason for exam: screening (asymptomatic). Baseline mammogram. History: Taking hormonal contraceptives for 20 years beginning at age 18. Physical Findings: Nurse did not find any significant physical abnormalities on exam. MG Screening Mammo w CAD Bilateral CC and MLO view(s) were taken. The breast tissue is almost entirely fat. Small nodularity bilaterally towards axilla suspect low lying benign lymph nodes but advise ultrasound evaluation without prior comparison. ASSESSMENT: Incomplete: need additional imaging evaluation, BI-RAD 0 RECOMMENDATION: Ultrasound of both breasts. [facility] will attempt to contact patient to return for ultrasound.
== END | disposition home or self-care (01) ==
LOC: RADMAMWWP 13:58
PROVIDERS: ATTEND Family Medicine
DX: Z12.31 Encounter for screening mammogram for malignant neoplasm of breast (principal)
CPT/HCPCS: 77067

== ENCOUNTER → 2021-04-09 | Outpatient (CLI) | payer OTHER ==
--- NOTE | 2021-04-12 09:33 | USB ---
Reason for exam: additional evaluation requested from abnormal screening. History: Taking hormonal contraceptives for 20 years beginning at age 18. Physical Findings: Nurse did not find any significant physical abnormalities on exam. US Breast Workup Limited JEN Right limited breast ultrasound including focal area of concern, retroareolar and axilla demonstrates a 3.6 x 1.9 x 1.2cm solid lymph node at 9 o'clock. Left limited breast ultrasound including focal area of concern, retroareolar and axilla demonstrates a 1.3 x 0.8 x 1.3cm solid lipoma at 2 o'clock. Scanned right breast 9-12 o'clock. Scanned left breast 12-3 o'clock. These results were verbally communicated with the patient and result sheet given to the patient on 04/09/21. ASSESSMENT: Benign, BI-RAD 2 RECOMMENDATION: Follow-up diagnostic mammogram of both breasts in 6 months.
== END | disposition home or self-care (01) ==
LOC: RADUSWWP 08:12
PROVIDERS: ATTEND Family Medicine
DX: R92.8 Other abnormal and inconclusive findings on diagnostic imaging of breast (principal)

== ENCOUNTER → 2021-07-15 | Outpatient (CLI) | payer OTHER ==
[2021-07-15 08:59] VITALS: BP 127/90; PULSE 84; RESP 17; TEMP 98.3
--- NOTE | 2021-07-15 09:52 | P.GSHP ---
History of Present Illness H&P Date: 07/15/21 Chief Complaint: abnormal ultrasound bilateral breast Dee Dee is a 51-year-old white female seen in consultation for Dr. Browning regarding an abnormal ultrasound of both breasts. She underwent a bilateral mammogram in which was incomplete and ultrasound of both breasts was recommended. This was performed on . The ultrasound revealed a 3.6 x 1.2 cm lymph node at 9:00 which was felt to be benign, and a left breast ultrasound revealed a 1.3 cm solid most likely lipoma at 2:00. The results were felt to be benign BIRADS tube a follow-up mammogram of both breasts in 6 months was recommended. The patient states this was a screening mammogram and she does not feel anything of concern in either breast or under her arms. Complaining of any new lumps masses or nodules on either side. She is not complaining of any nipple discharge or skin changes. She has not had any recent trauma or infection in the breast. She's never had any surgery of her breasts. Caffeine: ice tea 4 glasses/day nicotine: chews nicotine gum all day, does not smoke chocolate: several times a week BCP: for about 20 years stopped 10 years ago hormones: none Family History: mother: precancer of cervix or uterus paternal uncle: ? type Hormonal History: menarche: 11 ( one son in infancy), breast fed: no, age at first : 20 menopause: still has IUD stopped periods at about 48 hormones: none expect BCP Surgical History: gallbladder Medical History: HTN high cholesterol Social History: smoke: stopped 5 years ago 1 PPD since 20, now uses nicotine gum alcohol: none drugs: Marijuana prior to going to bed several times a week - Constitutional Constitutional: Denies chills, Denies fever - EENT Eyes: denies blurred vision, denies pain Ears: deny: decreased hearing, tinnitus Ears, nose, mouth and throat: Denies headache, Denies sore throat - Breasts Breasts: bilateral: as per HPI - Cardiovascular Cardiovascular: Denies chest pain, Denies shortness of breath - Respiratory Respiratory: Denies cough, Denies 7 - Gastrointestinal Gastrointestinal: Reports constipation, Denies abdominal pain, Denies diarrhea, Denies nausea, Denies vomiting - Genitourinary (Female) Genitourinary: Denies dysuria, Denies hematuria - Menstruation Menstruation: Reports postmenopausal - Musculoskeletal Musculoskeletal: Denies myalgias - Integumentary Integumentary: Denies pruritus, Denies rash - Neurological Neurological: Reports gait dysfunction, Denies numbness, Denies weakness - Psychiatric Comment: social anxiety Psychiatric: Denies anxiety, Denies depression - Endocrine Comment: weight gain with COVID Endocrine: Reports weight change, Denies fatigue - Hematologic/Lymphatic Comment: none - Allergic/Immunologic Allergic/Immunologic: Reports as per HPI Past Medical History Past Medical History: GERD/Reflux, Hyperlipidemia, Hypertension Additional Past Medical History / Comment(s): hernia History of Any Multi-Drug Resistant Organisms: None Reported Past Surgical History: Cholecystectomy Additional Past Surgical History / Comment(s): EGD, colonoscopy, D&C Past Anesthesia/Blood Transfusion Reactions: No Reported Reaction, Motion Sickness Additional Past Anesthesia/Blood Transfusion Reaction / Comment(s): no hx blood transfusion Past Psychological History: Anxiety Additional Psychological History / Comment(s): Pt resides alone with her dog. 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 She drives. Smoking Status: Former smoker Past Alcohol Use History: Occasional Additional Past Alcohol Use History / Comment(s): Pt started smoking in 1987 and quit in 2015. She was a ppd smoker. Past Drug Use History: None Reported - Past Family History Father Family Medical History: Hypertension Additional Family Medical History / Comment(s): Father is at the age of 70yrs.. Pt cannot recall cause of his . Mother Family Medical History: No Reported History Additional Family Medical History / Comment(s): Mother is healthy and is 72 yrs old. Medications and Allergies Home Medications Medication Instructions Recorded Confirmed Type Omeprazole 20 mg PO QAM 12/27/17 07/15/21 History Sertraline [Zoloft] 50 mg PO QAM 12/27/17 07/15/21 History amLODIPine [Norvasc] 5 mg PO QAM 01/05/18 07/15/21 History Multivitamins, Thera [Multivitamin 1 tab PO DAILY 10/12/18 07/15/21 History (formulary)] Cephalexin [Keflex] 500 mg PO BID 7 Days #14 cap 09/06/19 07/15/21 Rx Allergies Allergy/AdvReac Type Severity Reaction Status Date / Time No Known Allergies Allergy Verified 07/15/21 08:52 Surgical - Exam Vital Signs Temp Pulse Resp BP Pulse Ox 98.3 F 84 17 127/90 97 07/15/21 08:55 07/15/21 08:55 07/15/21 08:55 07/15/21 08:55 07/15/21 08:55 BMI 44.5 - General no distress - Eyes normal ocular movement - Neck trachea midline - Respiratory normal respiratory effort, clear to auscultation - Cardiovascular Rhythm: regular Heart Sounds: normal: S1, S2 - Integumentary normal turgor - Neurologic no disoriented, no combative - Musculoskeletal normal gait, normal posture - Psychiatric oriented to time, oriented to person, oriented to place, speech is normal, memory intact Breast Exam: BRA: 38DD inspection: Bilateral grade 3 ptosis Palpation: Right breast: Multi-positional exam fibrocystic changes no dominant masses or nodules of concern Right axilla: No adenopathy of concern Left breast: Multi-positional exam were cystic changes no dominant masses or nodules of concern Left axilla: No adenopathy of concern Results Mammogram and ultrasound reviewed with Dr. Quezada from radiology Assessment and Plan Assessment: Impression: Fibrocystic breast changes Abnormal bilateral breast ultrasounds, right breast 3.6 x 1.9 cm lymph node at 9:00 cortex is then and felt to be benign as per radiology Left breast ultrasound 1.3 x 1.3 cm solid lesion felt to be a lipoma at 2:00 Plan: Follow-up bilateral mammogram and ultrasound in 6 months with a physician exam at that time If patient notes anything of concern would like to see her sooner Cc: Dr. Ese Browning
== END ==
LOC: WWCWWP 08:48
PROVIDERS: ATTEND Surgery
DX: N60.12 Diffuse cystic mastopathy of left breast (principal); N60.11 Diffuse cystic mastopathy of right breast; I10 Essential (primary) hypertension; E78.00 Pure hypercholesterolemia, unspecified; Z87.891 Personal history of nicotine dependence; E78.5 Hyperlipidemia, unspecified; F41.9 Anxiety disorder, unspecified; K21.9 Gastro-esophageal reflux disease without esophagitis

== ENCOUNTER → 2021-08-05 | Outpatient (CLI) | payer OTHER ==
--- NOTE | 2021-08-05 12:12 | XR ---
EXAMINATION TYPE: XR abdomen acute w cxr DATE OF EXAM: 08/05/2021 COMPARISON: NONE HISTORY: Pain TECHNIQUE: Supine, upright, and left side down lateral decubitus views of the abdomen are obtained. FINDINGS: Postsurgical change involving the right upper quadrant and the pelvis. Nonspecific calcifications in the pelvis and hypertrophic change of the acetabulum. This can be associated femoral acetabular impin gement. Bowel gas pattern nonspecific with no obstruction. Elevated left hemidiaphragm incidentally n oted. Curvature of the spine noted. IMPRESSION: Nonspecific abdomen. Correlate with CT scan as clinically warranted.
--- NOTE | 2021-08-05 12:13 | XR ---
EXAMINATION TYPE: XR knee complete RT DATE OF EXAM: 08/05/2021 COMPARISON: NONE HISTORY: Pain TECHNIQUE: Three views are submitted. FINDINGS: There is narrowing the medial compartment and patellofemoral compartment of the knee joint with hyper trophic spurring. Mild diffuse osteopenia. Small amount of fluid in the suprapatellar bursa.. Osseou s structures are intact. No acute fracture seen. IMPRESSION: 1. Osteoarthritis.
== END | disposition home or self-care (01) ==
LOC: RADXRMAIN 11:31
PROVIDERS: ATTEND Family Medicine
DX: M17.11 Unilateral primary osteoarthritis, right knee (principal); R10.9 Unspecified abdominal pain
CPT/HCPCS: 74022

== ENCOUNTER → 2021-10-16 | Outpatient (CLI) | payer OTHER ==
--- NOTE | 2021-10-17 03:53 | MR ---
EXAMINATION TYPE: MR knee RT wo con DATE OF EXAM: 10/16/2021 COMPARISON: None HISTORY: Knee pain. Multiplanar multi echo imaging of the right knee with no contrast. There is hypertrophic spurring of the femoral and tibial condyles. There is knee joint effusion. The anterior and posterior cruciate ligaments are intact. There is vertical tear through the anterior hor n of the medial meniscus. Lateral meniscus appears fairly normal. The patella is intact. The collater al ligaments appear intact. There is some thinning of the medial meniscus. There is a 1 cm area of yulissa ne bruise and edema involving subchondral medial femoral and tibial condyles. No fracture seen. There is also some minimal edema at the tibial spines. IMPRESSION: There is a vertical tear and degenerative thinning of the anterior horn of the medial meniscus. There is mild medial joint space narrowing. There is bone bruise on both sides of the medial joint space. No evidence of ligamentous tear. Knee joint effusion.
== END | disposition home or self-care (01) ==
LOC: RADMRIMAIN 14:11
PROVIDERS: ATTEND Family Medicine
DX: M23.211 Derangement of anterior horn of medial meniscus due to old tear or injury, right knee (principal); M17.11 Unilateral primary osteoarthritis, right knee